=== PATIENT | male | born 1965 | race Caucasian/White ===

== ENCOUNTER 2025-11-08 12:49 | Emergency (ER) | payer OTHER ==
[~2025-11-08] VITALS: Ht 175.3 cm; Wt 83.0 kg
[2025-11-08 13:35] LABS: PLATELET COUNT (AUTO) 238 K/uL (150-450); RED BLOOD CELL COUNT(AUTO) 4.77 MIL/uL (4.5-6.0); RED CELL DISTRIBUTION WIDTH 14.2 % (11.5-15.0); WHITE BLOOD COUNT (AUTO) 7.7 K/uL (4.3-11.0)
[2025-11-08 13:39] LABS: CALCIUM, SERUM 8.4 mg/dL (8.5-10.1); CREATININE 0.9 mg/dL (0.6-1.3); SODIUM SERUM 142 mmol/L (136-145); UREA NITROGEN, BLOOD 13 mg/dL (7-18)
[2025-11-08 13:45] LABS: ASPARTATE AMINOTRANSFERASE 19 U/L (15-37); TOTAL PROTEIN, SERUM 7.5 g/dL (6.4-8.2)
[2025-11-08 14:05] LABS: APPEARANCE,URINE CLEAR (CLEAR); BLOOD, URINE NEGATIVE Ery/uL (NEGATIVE); LEUKOCYTE ESTERASE ,URINE NEGATIVE (NEGATIVE); NITRITE, URINE NEGATIVE (NEGATIVE); UGLUCOSE NEGATIVE (NEGATIVE)
[2025-11-08] MEDS ORDERED: MAG HYDROX/AL HYDROX/SIMETH 30 ML UDC ONE (14:33)
[2025-11-08] MEDS ORDERED: FAMOTIDINE (20 MG) 20 MG TABLET ONE (14:33)
[2025-11-08] MEDS ORDERED: ACETAMINOPHEN 325 MG TABLET ONE (14:33)
[2025-11-08] MEDS: MAG HYDROX/AL HYDROX/SIMETH 30 ML UDC PO ONE (14:37)
[2025-11-08] MEDS: FAMOTIDINE (20 MG) 20 MG TABLET PO ONE (14:37)
[2025-11-08] MEDS: ACETAMINOPHEN 325 MG TABLET PO ONE (14:38)
[2025-11-08 16:09] LABS: OCCULT BLOOD STOOL NEGATIVE (NEGATIVE)
[2025-11-08] MEDS ORDERED: MORPHINE SULFATE INJ 4 MG/ML DISP.SYRIN ONE (16:34)
[2025-11-08] MEDS ORDERED: ONDANSETRON HCL/PF 4 MG/2 ML VIAL ONE (16:34)
[2025-11-08] MEDS ORDERED: hydrALAZINE HCL IV 20 MG VIAL ONE (16:34)
[2025-11-08] MEDS: MORPHINE SULFATE INJ 2 MG/ML DISP.SYRIN IV ONE (16:43)
[2025-11-08] MEDS: hydrALAZINE HCL IV 20 MG VIAL IV ONE (16:43)
[2025-11-08] MEDS: ONDANSETRON HCL/PF 4 MG/2 ML VIAL IV ONE (16:44)
[2025-11-08 17:47] VITALS: BP 161/105; TEMP 98.2; O2SAT 98
== END 2025-11-08 17:48 | disposition home or self-care (01) ==
LOC: ER 12:56
DX: R10.12 Left upper quadrant pain (principal); R53.1 Weakness; Z87.19 Personal history of other diseases of the digestive system; Z20.822 Contact with and (suspected) exposure to COVID-19
CPT/HCPCS: 99285; 74176; 96374; 96375; 71045; 87426; 93005; 87804 ×2; 85025; 80048; 83690; 80076; 82272; 81003; 36415; 84484; J0360; J2270; J2405; 87086-TC

== ENCOUNTER 2025-11-11 11:04 | Emergency (ER) | payer OTHER ==
[~2025-11-11] VITALS: Ht 175.3 cm; Wt 79.4 kg
[2025-11-11 11:11] VITALS: TEMP 97.9
[2025-11-11 11:39] LABS: PLATELET COUNT (AUTO) 257 K/uL (150-450); RED BLOOD CELL COUNT(AUTO) 4.73 MIL/uL (4.5-6.0); RED CELL DISTRIBUTION WIDTH 14.9 % (11.5-15.0); WHITE BLOOD COUNT (AUTO) 7.4 K/uL (4.3-11.0)
[2025-11-11 11:56] LABS: CALCIUM, SERUM 8.4 mg/dL (8.5-10.1); CREATININE 1.2 mg/dL (0.6-1.3); SODIUM SERUM 144.0 mmol/L (136-145); UREA NITROGEN, BLOOD 24.0 mg/dL (7-18)
[2025-11-11 12:05] LABS: ASPARTATE AMINOTRANSFERASE 27.0 U/L (15-37); TOTAL PROTEIN, SERUM 7.3 g/dL (6.4-8.2)
[2025-11-11 12:26] LABS: APPEARANCE,URINE CLEAR (CLEAR); BLOOD, URINE NEGATIVE Ery/uL (NEGATIVE); LEUKOCYTE ESTERASE ,URINE NEGATIVE (NEGATIVE); NITRITE, URINE NEGATIVE (NEGATIVE); UGLUCOSE NEGATIVE (NEGATIVE)
[2025-11-11 12:37] LABS: ADD URINE CULTURE NO; CALCIUM OXALATE CRYSTALS,UR Many /HPF (None Seen); SQUAMOUS EPITHELIAL CELL,UR None Seen /HPF (None Seen)
[2025-11-11] MEDS ORDERED: LORAZEPAM 1 MG TABLET ONE (13:02)
[2025-11-11] MEDS: LORAZEPAM 1 MG TABLET PO ONE (13:04)
[2025-11-11 15:01] VITALS: BP 150/99; O2SAT 97
== END 2025-11-11 14:45 | disposition home or self-care (01) ==
LOC: ER 11:10
DX: R07.89 Other chest pain (principal); I10 Essential (primary) hypertension
CPT/HCPCS: 36415; 71045-TC; 80048-TC; 80076-TC; 81001; 83690-TC; 84484-TC; 85025-TC

== ENCOUNTER 2025-11-14 21:12 | Emergency (ER) | payer OTHER | END 2025-11-15 00:23 | disposition left against medical advice (07) | LOC: ER 21:14 | DX: Z53.21 Procedure and treatment not carried out due to patient leaving prior to being seen by health care provider (principal) ==

== ENCOUNTER 2025-11-17 11:57 | Emergency (ER) | payer OTHER ==
[~2025-11-17] VITALS: Ht 175.3 cm; Wt 79.4 kg
[2025-11-17] MEDS ORDERED: IBUPROFEN 400 MG TABLET ONE (12:28)
[2025-11-17] MEDS ORDERED: HYDROCODONE/APAP 5/325MG TABLET ONE (12:28)
[2025-11-17] MEDS: IBUPROFEN 400 MG TABLET PO ONE (12:29)
[2025-11-17] MEDS: HYDROCODONE/APAP 5/325MG TABLET PO ONE (12:29)
[2025-11-17] MEDS ORDERED: MORPHINE SULFATE INJ 4 MG/ML DISP.SYRIN ONE (13:28)
[2025-11-17] MEDS ORDERED: KETO10TA2 PO (13:28)
[2025-11-17] MEDS ORDERED: HYDR-4209 PO (13:28)
[2025-11-17] MEDS ORDERED: KETOROLAC TROMETHAMINE INJ 30 MG/ML VIAL ONE (13:28)
[2025-11-17] MEDS: KETOROLAC TROMETHAMINE INJ 30 MG/ML VIAL IM ONE (13:33)
[2025-11-17] MEDS: MORPHINE SULFATE INJ 2 MG/ML DISP.SYRIN IM ONE (13:33)
[2025-11-17 13:45] VITALS: BP 149/88; TEMP 98.8; O2SAT 100
== END 2025-11-17 13:45 | disposition home or self-care (01) ==
LOC: ER 11:59
DX: M25.562 Pain in left knee (principal)
CPT/HCPCS: 99285; 93971; 96372; 73564; J1885; J2270